=== PATIENT | female | born 1955 | race Caucasian/White ===

== ENCOUNTER 2020-12-09 21:01 | Inpatient (IN) | payer OTHER ==
[2020-12-09 21:10] VITALS: BMI 25.7
[2020-12-09] MEDS ORDERED: ONDANSETRON 4 MG TABLET PO ONE (22:20)
[2020-12-09] MEDS ORDERED: ONDANSETRON *ODT* 4 MG TABLET ONE ×2 (22:23→22:33)
[2020-12-09] MEDS ORDERED: MECLIZINE HCL 25 MG TABLET (FP) PO ONE (22:27)
[2020-12-09] MEDS ORDERED: ONDANSETRON *ODT* 4 MG TABLET SL ONE (22:57)
[2020-12-09] MEDS ORDERED: FOLIC ACID INJECTION - 1 MG, THIAMINE HCL 100 MG, MULTIVIT INJECTION ADULT 10 ML in SOD... IVPB ONE (23:05)
[2020-12-09 23:06] LABS: BASO % 0.3 % (0-2.0); HEMATOCRIT 37.7 % (32.4-45.2); LYMPH % 9.5 % (8-40); MCH 30.9 pg (25.7-33.7); MCHC 34.5 g/dl (32.0-36.0); MEAN CELL VOLUME 89.5 fl (80-96); MEAN PLT VOLUME 7.4 fl (7.5-11.1); MONO % 2.8 % (3.8-10.2); NEUT % 87.4 % (42.8-82.8); PLATELET COUNT 327 10^3/uL (134-434); RBC 4.21 M/mm3 (3.60-5.2); RDW 13.1 % (11.6-15.6); WHITE BLOOD COUNT 8.2 K/mm3 (4.0-10.0)
[2020-12-09 23:28] LABS: BLOOD UREA NITROGEN 17.1 mg/dL (7-18); CALCIUM 9.2 mg/dL (8.5-10.1)
[2020-12-09 23:29] LABS: ALBUMIN 3.8 g/dl (3.4-5.0)
[2020-12-09 23:31] LABS: CREATININE 0.8 mg/dL (0.55-1.3)
[2020-12-09 23:33] LABS: BILIRUBIN,TOTAL 0.5 mg/dL (0.2-1); TOT PROT 7.6 g/dl (6.4-8.2)
[2020-12-10] MEDS ORDERED: SODIUM CHLORIDE 1,000 ML IV SCH (04:45)
[2020-12-10] MEDS ORDERED: TRIMETHOBENZAMIDE HCL 300 MG CAPSULE PO PRN (05:49)
[2020-12-10] MEDS ORDERED: MECLIZINE HCL 25 MG TABLET (FP) PO PRN (05:51)
[2020-12-10] MEDS ORDERED: MECLIZINE HCL 25 MG TABLET (FP) PO SCH ×2 (06:00→10:00)
[2020-12-10] MEDS: INSULIN SLIDING SCALE (NOVOLOG) 1 VIAL SQ SCH ×4 (06:41→21:01)
[2020-12-10 08:37] LABS: BASO % 0.5 % (0-2.0); EOS % 0.2 % (0-4.5); HEMATOCRIT 35.4 % (32.4-45.2); HEMOGLOBIN 12.3 GM/dL (10.7-15.3); LYMPH % 35.3 % (8-40); MCH 31.5 pg (25.7-33.7); MCHC 34.6 g/dl (32.0-36.0); MEAN PLT VOLUME 7.7 fl (7.5-11.1); MONO % 7.2 % (3.8-10.2); NEUT % 56.8 % (42.8-82.8); PLATELET COUNT 299 10^3/uL (134-434); RDW 13.1 % (11.6-15.6); WHITE BLOOD COUNT 6.8 K/mm3 (4.0-10.0)
[2020-12-10 09:04] LABS: CALCIUM 8.5 mg/dL (8.5-10.1)
[2020-12-10 09:05] LABS: ALBUMIN 3.4 g/dl (3.4-5.0); BLOOD UREA NITROGEN 14.3 mg/dL (7-18); MAGNESIUM 2.3 mg/dL (1.8-2.4)
[2020-12-10 09:08] LABS: CREATININE 0.7 mg/dL (0.55-1.3); PHOSPHOROUS 4.2 mg/dL (2.5-4.9)
[2020-12-10 09:09] LABS: BILIRUBIN,TOTAL 0.5 mg/dL (0.2-1)
[2020-12-10 09:10] LABS: TOT PROT 6.6 g/dl (6.4-8.2)
[2020-12-10] MEDS: ENOXAPARIN NA (PORCINE) 40 MG/0.4 ML DISP.SYRIN SQ SCH (09:32)
[2020-12-10] MEDS ORDERED: PT OWN MED DRAWER 7, Y5N ONE ×3 (09:37→20:28)
[2020-12-10] MEDS: MECLIZINE HCL 25 MG TABLET (FP) PO SCH ×2 (15:06→21:01)
[2020-12-10 15:30] LABS: EPI CELLS 20 /uL (0-25.1); HYALINE CASTS 1 /uL (0-3.1); URINE APPEARANCE CLEAR; URINE BACTERIA 346 /uL (0-1359); URINE BILIRUBIN NEGATIVE (NEGATIVE); URINE COLOR YELLOW; URINE GLUCOSE (UA) NEGATIVE (NEGATIVE); URINE KETONE NEGATIVE (NEGATIVE); URINE LEUK ESTERASE 3+ (NEGATIVE); URINE NITRITE NEGATIVE (NEGATIVE); URINE PROTEIN NEGATIVE (NEGATIVE); URINE RBC 4 /uL (0-23.9); URINE WBC 381 /uL (0-25.8)
[2020-12-10] MEDS ORDERED: cefTRIAXone SODIUM 1 GM VIAL ONE (20:48)
[2020-12-10] MEDS ORDERED: DEXTROSE 5%-WATER - 50 ML IVPB ONE (20:48)
[2020-12-10] MEDS: CEFTRIAXONE 1 GM in DEXTROSE 5%-WATER - 50 ML IVPB SCH (20:58)
[2020-12-10] MEDS: ATORVASTATIN CA 20 MG TABLET (FP) PO SCH (21:01)
[2020-12-11] MEDS: MECLIZINE HCL 25 MG TABLET (FP) PO SCH ×3 (05:38→21:36)
[2020-12-11] MEDS: INSULIN SLIDING SCALE (NOVOLOG) 1 VIAL SQ SCH ×2 (06:01→12:33)
[2020-12-11] MEDS ORDERED: PT OWN MED DRAWER 7, Y5N ONE ×3 (08:49→21:35)
[2020-12-11] MEDS ORDERED: DEXTROSE 5%-WATER - 50 ML IVPB ONE (08:50)
[2020-12-11] MEDS ORDERED: cefTRIAXone SODIUM 1 GM VIAL ONE (08:50)
[2020-12-11] MEDS: CEFTRIAXONE 1 GM in DEXTROSE 5%-WATER - 50 ML IVPB SCH (09:14)
[2020-12-11] MEDS: ENOXAPARIN NA (PORCINE) 40 MG/0.4 ML DISP.SYRIN SQ SCH (09:15)
[2020-12-11] MEDS: ATORVASTATIN CA 20 MG TABLET (FP) PO SCH (21:36)
[2020-12-12] MEDS ORDERED: PT OWN MED DRAWER 7, Y5N ONE ×3 (05:09→13:22)
[2020-12-12] MEDS: MECLIZINE HCL 25 MG TABLET (FP) PO SCH ×2 (05:14→13:26)
[2020-12-12 08:14] LABS: BASO % 0.6 % (0-2.0); EOS % 0.9 % (0-4.5); HEMOGLOBIN 11.8 GM/dL (10.7-15.3); LYMPH % 41.5 % (8-40); MCH 31.4 pg (25.7-33.7); MCHC 34.8 g/dl (32.0-36.0); MEAN CELL VOLUME 90.3 fl (80-96); MEAN PLT VOLUME 7.7 fl (7.5-11.1); MONO % 7.2 % (3.8-10.2); NEUT % 49.8 % (42.8-82.8); PLATELET COUNT 279 10^3/uL (134-434); RBC 3.77 M/mm3 (3.60-5.2); RDW 12.9 % (11.6-15.6); WHITE BLOOD COUNT 4.7 K/mm3 (4.0-10.0)
[2020-12-12 08:31] LABS: BLOOD UREA NITROGEN 13.5 mg/dL (7-18); CALCIUM 8.5 mg/dL (8.5-10.1)
[2020-12-12 08:32] LABS: MAGNESIUM 2.1 mg/dL (1.8-2.4)
[2020-12-12 08:35] LABS: CREATININE 0.7 mg/dL (0.55-1.3); PHOSPHOROUS 4.1 mg/dL (2.5-4.9)
[2020-12-12] MEDS ORDERED: DEXTROSE 5%-WATER - 50 ML IVPB ONE (09:15)
[2020-12-12] MEDS ORDERED: cefTRIAXone SODIUM 1 GM VIAL ONE (09:15)
[2020-12-12] MEDS: CEFTRIAXONE 1 GM in DEXTROSE 5%-WATER - 50 ML IVPB SCH (09:18)
[2020-12-12] MEDS: ENOXAPARIN NA (PORCINE) 40 MG/0.4 ML DISP.SYRIN SQ SCH (09:18)
[2020-12-12 11:42] VITALS: BP 124/73; PULSE 76; TEMP 97.9
[2020-12-12] MEDS ORDERED: POTASSIUM CHLORIDE TABS 20 MEQ TABLET.ER (FP) PO ONE (13:55)
== END 2020-12-12 15:29 | disposition home or self-care (01) | DRG 149 ==
LOC: JER 21:01 → JERBED 12-10 01:47 → J8W 12-10 03:53
PROVIDERS: ADMIT Internal Medicine; ATTEND Internal Medicine
DX: H81.10 Benign paroxysmal vertigo, unspecified ear (principal); E78.5 Hyperlipidemia, unspecified; R11.2 Nausea with vomiting, unspecified; H55.00 Unspecified nystagmus; R73.9 Hyperglycemia, unspecified
CPT/HCPCS: 36415; 70450-TC; 70496-TC; 70498-TC; 80048; 80053; 81003; 82962; 83036; 83735; 84100; 85025; 87086; 93005; 93010; 97116-GP; 97161-GP; 99285-25; C9803; Q0162; U0003; U0005